=== PATIENT | male | born 1995 | race Two or more races ===

== ENCOUNTER 2025-08-06 13:29 | Emergency (ER) | payer MEDICAID, SELFPAY ==
[2025-08-06 13:42] VITALS: BP 133/90; PULSE 96; RESP 18; TEMP 36.8; O2SAT 97; BMI 33.7
--- NOTE | 2025-08-06 14:01 | XR_ITS ---
Examination: CT lumbar spine, without contrast. 2-D sagittal reconstructions. 2-D coronal reconstructions. 3-D reconstructions. Date and time of exam: 08/06/2025 at 2:54 p.m. INDICATION: Lower back pain, intermittent for 2 months COMPARISON: None CTDI: vol (mGy): 26.6 DLP: (mGycm): 829 Technique: Multiple 1.25 mm axial sections of the lumbar spine have been obtained. 2-D sagittal and coronal reconstructions have been obtained. 3-D reconstructions have been obtained. Low dose protocols were performed. One or more of the following dose reduction techniques were used; automated exposure control, adjustment of the mA and/or KV according to patient size, use of iterative reconstruction technique. Findings: The lumbar vertebra demonstrate normal height and morphology. No acute vertebral compression fractures are seen. 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 There is posterior predominant disc space narrowing at L5-S1 with a slight posterior disc protrusion. Mild to moderate left foraminal stenosis is present on the left at L5-S1. No significant central canal stenosis or right neural foraminal stenosis. At L4-L5, a mild broad posterior disc protrusion is seen with very mild central canal narrowing. Mild epidural lipomatosis noted. Moderate right and mild to moderate left neural foraminal stenoses are present. At L3-L4, there is a mild broad posterior disc protrusion indenting the thecal sac. Dorsal predominant epidural lipomatosis is present. Mild central canal stenosis and mild to moderate bilateral neural foraminal stenoses noted. At L2-L3 and L1-L2, disc stature is well-maintained. No disc protrusions. Dorsal epidural lipomatosis is also seen. No significant acquired central canal neural foraminal stenoses at these levels. T12-L1 is unremarkable. No paraspinous edema, hematoma, lymphadenopathy or mass. Normal caliber abdominal aorta. 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 Impression: No acute vertebral compression fractures are seen. 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 Multilevel central canal and neural foraminal stenoses as described.
[2025-08-06] MEDS: KETOROLAC INJ 30 MG/ML VIAL IM (14:29)
--- NOTE | 2025-08-06 16:22 | EDNOTE_ITS ---
<Statement entered by Toma Oconnell MD - 08/07/25 09:33> As co-signing physician, I was present and available for consult prn. I concur with the plan and care as documented by the midlevel provider. ED Back Injury Pain RME/HPI General Chief Complaint: Back Pain/Injury Stated Complaint: SEVERE BACK PAIN (07/12) Time Seen by Provider: 08/06/25 14:00 Arrival date/time: 08/06/25 13:29 29-year-old male presents to the emergency department today with complaints of lower back pain ongoing for the last few days patient reports no fever nausea or vomiting no saddle anesthesia no loss of bowel or bladder no abdominal pain Limitations: no limitations Related Data Allergies Allergy/AdvReac Type Severity Reaction Status Date / Time No Known Allergies Allergy Verified 08/06/25 13:33 Review of Systems Review of Systems Systems Reviewed: All systems reviewed, normal except as documented Constitutional Constitutional: Reports system reviewed and no additional complaints, except as documented, Denies fever(s) and Denies headache(s) Eyes Eyes: Reports system reviewed and no additional complaints, except as documented and Denies blurry vision ENT Ears, Nose, Mouth, and Throat: Reports system reviewed and no additional complaints, except as documented, Denies headache(s), Denies nasal congestion and Denies nasal discharge Cardiovascular Cardiovascular: Reports system reviewed and no additional complaints, except as documented, Denies chest pain and Denies dyspnea Respiratory Respiratory: Reports system reviewed and no additional complaints, except as documented, Denies chest congestion, Denies cough and Denies dyspnea Gastrointestinal Gastrointestinal: Reports system reviewed and no additional complaints, except as documented and Denies abdominal pain Musculoskeletal Musculoskeletal: Reports system reviewed and no additional complaints, except as documented, Reports back pain, Denies numbness, Reports stiffness and Denies tingling Integumentary/Breasts Skin/Breast: Reports system reviewed and no additional complaints, except as documented and Denies rash Neurologic Neurologic: Reports system reviewed and no additional complaints, except as documented, Reports as per HPI, Denies headache(s), Denies numbness and Denies tingling Past Medical History Social History SMOKING STATUS: Never smoker ED Exam General Limitations: Present no limitations General appearance: Present alert and in no apparent distress Head Head exam: Present atraumatic Eye Eye exam: Present normal appearance, PERRL and EOMI ENT ENT exam: Present normal exam, normal oropharynx and mucous membranes moist Neck Neck exam: Present normal inspection, full ROM and trachea midline Chest Chest inspection: Present normal inspection and symmetric chest wall rise Respiratory Respiratory exam: Present normal lung sounds bilaterally Cardiovascular Cardiovascular exam: Present regular rate, normal rhythm and normal heart sounds Abdominal Exam Abdominal exam: Present soft and normal bowel sounds Extremities Exam Extremities exam: Present normal inspection and full ROM Back Exam Back exam: Present normal inspection and full ROM Back 1 view image: 2 1. Back pain worse with movement Neurological Exam Neurological exam: Present alert, oriented X3 and CN II-XII intact Psychiatric Psychiatric exam: Present normal affect and normal mood Skin Skin exam: Present warm, dry, intact and normal color Course Quality Measures none Orders Category Date Time Status CT lumbar spine wo con Stat Exams 08/06/25 14:01 Completed Ketorolac Inj [Toradol Inj] Med 08/06/25 14:00 Discontinued 30 mg IM X1 ONE Vital Signs Vital signs: Vital Signs Temperature 98.3 F 08/06/25 13:42 Pulse Rate 96 08/06/25 13:42 Respiratory Rate 18 08/06/25 13:42 Blood Pressure 133/90 H 08/06/25 13:42 Pulse Oximetry (%) 97 08/06/25 13:42 Oxygen Delivery Method Room Air 08/06/25 13:42 O2 saturation 97% room air with normal limits Back Pain / Injury MDM Narrative MDM Narrative:: 29-year-old male presents to the emergency department today with complaints of lower back pain ongoing for the last few days patient reports no fever nausea or vomiting no saddle anesthesia no loss of bowel or bladder no abdominal pain On exam patient well-appearing patient does not appear ill or toxic no acute distress Imaging obtained no acute emergent findings noted Given pain medication Patient discharged home in no distress to follow-up with primary care doctor in the next 24 to 48 hours and for any worsening symptoms to return to the ER immediately Patient data External records reviewed:: [facility] previous records Clinical information provided by:: patient Social determinants that could affect healthcare access:: none Patient has the following chronic illnesses:: None How is presenting disease/condition affected by chronic disease/condition?: no chronic disease Evaluation data The following diagnostics were reviewed and interpreted by me:: radiology exam(s) Lab and/or radiology exams considered but not ordered:: Radiology obtained Interpretation Summary: Reviewed by me Medications / Prescriptions Medications or Prescriptions considered but not ordered:: Given Medication administrations:: Medication Administration History Discontinued Medications Ketorolac Tromethamine (Ketorolac Inj 30 Mg/Ml Vial) 30 mg IM X1 ONE Stop: 08/06/25 14:01 Last Admin: 08/06/25 14:29 Dose: 30 mg Documented By: Given Consultations Consultation(s) initiated? (list below): No Diagnosis Differential diagnosis back pain/injury: lumbar radiculopathy, sciatica and strain of lumbar region Most likely diagnosis given after review of the tests above:: Back pain Admission Indicated Admission indicated?: not indicated Admission Request Was there a request for admission?: No Disposition Plan Disposition Plan: Discharge Discharge Attestation Discharge Attestation: The patient and all family members were given an opportunity to ask questions and understood the discharge instructions. Discharge instructions specifically effects, indications for sooner follow up or return to the emergency department, and the expected course of current diagnosis. Patient condition: Stable Discharge Plan Plan Patient Disposition: HOME (Self Care) Discharge Disposition comment: Stable Prescriptions/Referrals Referrals: No Primary/Family,Physician [Primary Care Provider] - 08/07/25 Problem List Clinical Impression: Lumbar radiculopathy, Strain of lumbar region Patient/Caregiver Discharge Instructions Education Materials: Back Safety Bed Additional Instructions: Please follow up with your primary care doctor in the next 24-48hrs for any worsening symptoms return here immediately Print Language: Surinamese Stand Alone Forms: Clarita Award Info., Work/School Release, Patient Portal Info Letter STEVE/MARTINEZ Supervising Physician STEVE/MARTINEZ Supervising Physician: Dr. Oconnell
== END 2025-08-06 16:45 | disposition home or self-care (01) ==
PROVIDERS: Emergency Provider Nurse Practitioner Primary Care
DX: S39.012A Strain of muscle, fascia and tendon of lower back, initial encounter (principal); X50.0XXA Overexertion from strenuous movement or load, initial encounter
CPT/HCPCS: 72131; 96372; 99283; J1885